=== PATIENT | female | born 1975 | race Hispanic/Latino ===

== ENCOUNTER 2019-04-13 19:01 | Emergency (ER) | payer SELFPAY ==
[2019-04-13] MEDS ORDERED: Acetaminophen 500 MG TAB ONE (19:21)
== END 2019-04-13 19:57 | disposition home or self-care (01) ==
LOC: NAV ERS 19:01
DX: B34.9 Viral infection, unspecified (principal); F17.210 Nicotine dependence, cigarettes, uncomplicated
CPT/HCPCS: 87804; 99283